=== PATIENT | female | born 1975 | race Hispanic/Latino ===

== ENCOUNTER 2018-10-28 17:53 | Emergency (ER) | payer BC ==
[2018-10-28] MEDS ORDERED: KETOROLAC TROMETHAMINE 60 MG/2 ML VIAL ONE (18:40)
[2018-10-28] MEDS ORDERED: CYCLOBENZAPRINE HCL 10 MG TABLET ONE (18:40)
[2018-10-28] MEDS ORDERED: MORPHINE SULFATE 4 MG/1ML SYG ONE (18:41)
[2018-10-28] MEDS ORDERED: ONDANSETRON ODT 4 MG TAB ONE (18:41)
[2018-10-28] MEDS ORDERED: MORPHINE SULFATE 2 MG/ML 1ML SYG ONE (18:41)
== END 2018-10-28 20:51 | disposition home or self-care (01) ==
LOC: EDH 17:53
DX: M62.830 Muscle spasm of back (principal); M54.5 Low back pain; I10 Essential (primary) hypertension; Z90.49 Acquired absence of other specified parts of digestive tract; Z90.710 Acquired absence of both cervix and uterus; Z88.6 Allergy status to analgesic agent
CPT/HCPCS: 72131; 96372 ×2; 99284; J1885; J2270